=== PATIENT | female | born 1965 | race Hispanic/Latino ===

== ENCOUNTER 2024-12-04 02:42 | Inpatient (IN) | payer MEDICAID, SELFPAY ==
[2024-12-04] MEDS ORDERED: EPINEPHrine 1 MG/10 ML Abboject SYRINGE ONE (02:44)
[2024-12-04] MEDS ORDERED: Norepinephrine 8 MG/0.9% NS 250 ML ONE (02:55)
[2024-12-04] MEDS ORDERED: Sodium Bicarb 50 MEQ/50 ML Abboject 8.4% SYRINGE ONE (03:05)
[2024-12-04 03:18] LABS: Analyzer IN Cardio ER; Base Excess (BEa) -16.6 mEq/L (-2.0 to +3.0); CO2 Tension 44.4 mmHg (35.0-45.0); Calcium, Ionized (arterial) 1.16 mmol/L (1.12-1.30); Hematocrit-ABG 26 % (36.0-47.0); Hemoglobin (Hb) 9.0 g/dL (12.0-16.0); O2 Tension (PaO2), arterial 538.9 mmHg (> 80.0); Potassium - ABG Lab 4.45 mmol/L (3.70-5.30)
[2024-12-04 03:29] LABS: Hematocrit 27.5 % (36.0-47.0); Hemoglobin 8.1 g/dL (12.0-16.0); Mean Corpuscular Hemoglobin 29.6 pg (27.0-31.0); Mean Corpuscular Volume 100.4 fL (78.0-98.0); Platelet Count 170 10x3/uL (130-400); Red Blood Cell (RBC) Count 2.74 mill/uL (4.20-5.40); White Blood Cell (WBC) Count 7.02 10x3/uL (4.8-10.8)
[2024-12-04 03:32] LABS: Analyzer IN Cardio ER; Base Excess -18.2 mEq/L (-2.0 to +3.0); Calcium, Ionized (venous) 1.17 mmol/L (1.16-1.32); Chloride (VBG) 102 mmol/L (98-106); Hematocrit-VBG 27 % (36.0-47.0); Hemoglobin (Hb) 9.3 g/dL (11.7-16.0); Potassium (VBG) 4.10 mmol/L (3.70-5.30); Sodium 141 mmol/L (133-146)
[2024-12-04 03:53] LABS: Anisocytosis SLIGHT = 6-15 cells HPF (0-5); Macrocytosis SLIGHT = 6-15 cells HPF (0-5); Nucleated RBC (Manual Ct) 1 % (0); Platelet Adequacy Comment Platelets Normal
[2024-12-04 03:57] LABS: ALT (SGPT) 122 U/L (Less than 34); AST (SGOT) 208 U/L (11-34); Albumin 2.9 g/dL (3.1-4.5); Alkaline Phosphatase 157 U/L (40-110); Anion Gap 31 mmol/L (10-20); BUN (Urea Nitrogen) 51 mg/dL (9.8-20.1); Bilirubin, Total 0.3 mg/dL (0.3-1.2); Calc. Creatinine Clearance 0 mL/min (70-130); Calcium 8.8 mg/dL (7.8-10.44); Carbon Dioxide 14 mmol/L (23-31); Chloride 103 mmol/L (98-107); Globulin 2.7 g/dL (2.4-3.5); Glucose 368 mg/dL (80-115); Magnesium 2.7 mg/dL (1.6-2.6); Potassium 4.2 mmol/L (3.5-5.1); Sodium 144 mmol/L (136-145)
[2024-12-04 04:39] LABS: INR-International Normal Ratio 1.4; Prothrombin Time 16.8 sec (12.0-14.7)
[2024-12-04 04:40] LABS: Acetaminophen Less than 10 mcg/mL (Less than 10); Salicylate Less than 8.0 mg/dL (Less than 8.0)
[2024-12-04 04:40] LABS: PTT 49.0 sec (22.9-36.1)
[2024-12-04 04:41] LABS: Glucose, Urine (Dipstick) 500 mg/dL (Negative); Leukocyte Negative (Negative); Protein, Urine (Dipstick) > or equal to 300 mg/dL (Neg-Trace); Specific Gravity, Urine 1.020 (1.005-1.030)
[2024-12-04 04:45] LABS: CAUTI Indications for Culture Alt mental st,lethar; Other Microscopic Description Less than 2 mL rec'd; RBC/HPF 21-50 HPF (0-3)
[2024-12-04 04:46] LABS: Urine Culture Reflex No No
[2024-12-04] MEDS ORDERED: hydrALAZINE 20 MG/ML VIAL ONE (05:08)
[2024-12-04] MEDS ORDERED: Acetaminophen 325 MG TAB PO PRN (05:28)
[2024-12-04] MEDS ORDERED: Ondansetron PF 4 MG/2 ML Vial IVP PRN (05:28)
[2024-12-04] MEDS ORDERED: Glucagon 1 MG/ML KIT IM PRN (05:38)
[2024-12-04] MEDS ORDERED: Dextrose 50% Abboject 50 ML SYRINGE SLOW IVP PRN (05:38)
[2024-12-04] MEDS ORDERED: Ventilator Sedation Protocol 1 EACH FS SCH (05:45)
[2024-12-04] MEDS ORDERED: hydrALAZINE 20 MG/ML VIAL SLOW IVP PRN ×2 (05:50→08:01)
[2024-12-04] MEDS ORDERED: DISCONTINUE PREVIOUS NARCOTIC PAIN MEDICATIONS AND BENZODIAZEPINES FS SCH (06:00)
[2024-12-04] MEDS ORDERED: Propofol BOLUS 1,000 MG/100 ML VIAL IV PRN (06:00)
[2024-12-04] MEDS ORDERED: Fentanyl BOLUS 100 ML IVPB PRN (06:00)
[2024-12-04 07:08] LABS: Actual Bicarbonate (HCO3a) 21.0 mEq/L (22-28); Base Excess (BEa) -3.9 mEq/L (-2.0 to +3.0); CO2 Tension 37.5 mmHg (35.0-45.0); Calcium, Ionized (arterial) 0.98 mmol/L (1.12-1.30); Hematocrit-ABG 26 % (36.0-47.0); Hemoglobin (Hb) 8.7 g/dL (12.0-16.0); O2 Tension (PaO2), arterial 156.0 mmHg (> 80.0); Potassium - ABG Lab 4.65 mmol/L (3.70-5.30); pH, Arterial 7.367 (7.35-7.45)
[2024-12-04 07:09] LABS: Puncture Site Right Radial artery
[2024-12-04] MEDS: niCARdipine 25 MG in Sodium Chloride 0.9% 250 ML 250 ML IVPB SCH ×2 (08:14→15:57)
[2024-12-04] MEDS: hydrALAZINE 20 MG/ML VIAL SLOW IVP PRN (08:32)
[2024-12-04 08:37] VITALS: BMI 26.0
[2024-12-04] MEDS: Pantoprazole 40 MG VIAL IVP SCH (08:37)
[2024-12-04] MEDS ORDERED: Iopamidol-370 76% 500 ML MDV (1 ML CHARGE) ONE ×2 (08:47→08:49)
[2024-12-04] MEDS ORDERED: Aspirin 81 mg Enteric Coated Tablet PO SCH (09:00)
[2024-12-04] MEDS ORDERED: Heparin 5,000 UNITS/ML VIAL SC SCH (09:00)
[2024-12-04] MEDS: levETIRAcetam 500 MG (5 mL) VIAL SLOW IVP SCH ×2 (09:03→20:20)
[2024-12-04 09:06] LABS: Cocaine Metabolite Screen Negative (Negative); THC/Cannabinoid Screen Negative (Negative); Tricyclic Screen Negative (Negative)
[2024-12-04 09:43] VITALS: BMI 26.0
[2024-12-05 01:41] LABS: Campy jejuni + coli by PCR Negative (Negative); STEC Shiga Toxin 1+2 Negative (Negative); Salmonella spp. by PCR Negative (Negative); Shigella spp + EIEC by PCR Negative (Negative)
[2024-12-05 05:11] LABS: ALT (SGPT) 68 U/L (Less than 34); AST (SGOT) 124 U/L (11-34); Albumin 2.1 g/dL (3.1-4.5); Alkaline Phosphatase 83 U/L (40-110); Anion Gap 20 mmol/L (10-20); BUN (Urea Nitrogen) 60 mg/dL (9.8-20.1); Bilirubin, Total 0.4 mg/dL (0.3-1.2); Calc. Creatinine Clearance 7 mL/min (70-130); Calcium 7.2 mg/dL (7.8-10.44); Carbon Dioxide 20 mmol/L (23-31); Chloride 106 mmol/L (98-107); Globulin 2.2 g/dL (2.4-3.5); Glucose 132 mg/dL (80-115); Potassium 4.7 mmol/L (3.5-5.1); Sodium 141 mmol/L (136-145)
[2024-12-05 06:16] LABS: #Basophils Less than 0.03 10x3/uL (0.0-0.2); #Eosinophils Less than 0.03 10x3/uL (0.0-0.7); #Monocytes 0.16 10x3/uL (0.11-0.59); #Neutrophils 5.95 10x3/uL (1.40-6.50); %Basophils 0.2 % (0.0-1.0); %Eosinophils 0.3 % (0.0-10.0); %Lymphocytes 7.4 % (21.0-51.0); %Monocytes 2.4 % (0.0-10.0); %Neutrophils 89.2 % (42.0-75.0); Hematocrit 18.2 % (36.0-47.0); Hemoglobin 6.2 g/dL (12.0-16.0); Mean Corpuscular Hemoglobin 30.4 pg (27.0-31.0); Mean Corpuscular Volume 89.2 fL (78.0-98.0); Platelet Count 130 10x3/uL (130-400); Red Blood Cell (RBC) Count 2.04 mill/uL (4.20-5.40); White Blood Cell (WBC) Count 6.66 10x3/uL (4.8-10.8)
[2024-12-05 06:18] LABS: Critical Call w/ Read Back XXXX
[2024-12-05 08:04] LABS: Actual Bicarbonate (HCO3a) 12.6 mEq/L (22-28); pH, Arterial 7.071 (7.35-7.45)
[2024-12-05 08:05] LABS: Actual Bicarbonate (HCO3v) 12.9 mEq/L (22-28)
[2024-12-05] MEDS: Hydrocortisone Sod Succ/PF 100 mg/2 ml Vial IVP SCH (10:38)
[2024-12-05 12:49] LABS: Actual Bicarbonate (HCO3a) 19.6 mEq/L (22-28); Base Excess (BEa) -0.7 mEq/L (-2.0 to +3.0); Calcium, Ionized (arterial) 0.95 mmol/L (1.12-1.30); Hematocrit-ABG 26 % (36.0-47.0); Hemoglobin (Hb) 9.0 g/dL (12.0-16.0); O2 Tension (PaO2), arterial 404.6 mmHg (> 80.0); Potassium - ABG Lab 4.79 mmol/L (3.70-5.30)
[2024-12-05 12:52] LABS: pH, Arterial 7.612 (7.35-7.45)
[2024-12-05 12:53] LABS: CO2 Tension 19.9 mmHg (35.0-45.0)
[2024-12-05 12:54] LABS: Puncture Site Right Radial artery
[2024-12-05 12:56] LABS: ALV-art Gradient 283.525 mmHg (0-20)
[2024-12-05 13:43] LABS: Actual Bicarbonate (HCO3a) 20.2 mEq/L (22-28); Base Excess (BEa) -1.7 mEq/L (-2.0 to +3.0); Calcium, Ionized (arterial) 0.96 mmol/L (1.12-1.30); Hematocrit-ABG 27 % (36.0-47.0); Hemoglobin (Hb) 9.2 g/dL (12.0-16.0); O2 Tension (PaO2), arterial 345.6 mmHg (> 80.0); Potassium - ABG Lab 4.91 mmol/L (3.70-5.30); pH, Arterial 7.530 (7.35-7.45)
[2024-12-05 13:48] LABS: CO2 Tension 24.7 mmHg (35.0-45.0)
[2024-12-05 13:50] LABS: Puncture Site Right Radial artery
[2024-12-05 15:29] LABS: Actual Bicarbonate (HCO3a) 18.8 mEq/L (22-28); Base Excess (BEa) -5.4 mEq/L (-2.0 to +3.0); CO2 Tension 32.0 mmHg (35.0-45.0); Calcium, Ionized (arterial) 1.00 mmol/L (1.12-1.30); Hematocrit-ABG 28 % (36.0-47.0); Hemoglobin (Hb) 9.5 g/dL (12.0-16.0); O2 Tension (PaO2), arterial 260.4 mmHg (> 80.0); Potassium - ABG Lab 5.14 mmol/L (3.70-5.30); pH, Arterial 7.388 (7.35-7.45)
[2024-12-05 15:32] LABS: Puncture Site Right Radial artery
[2024-12-06 06:40] LABS: #Basophils Less than 0.03 10x3/uL (0.0-0.2); #Eosinophils Less than 0.03 10x3/uL (0.0-0.7); #Monocytes 0.29 10x3/uL (0.11-0.59); #Neutrophils 9.61 10x3/uL (1.40-6.50); %Basophils 0.1 % (0.0-1.0); %Eosinophils 0.0 % (0.0-10.0); %Lymphocytes 6.0 % (21.0-51.0); %Monocytes 2.7 % (0.0-10.0); %Neutrophils 90.6 % (42.0-75.0); Hematocrit 26.2 % (36.0-47.0); Hemoglobin 8.4 g/dL (12.0-16.0); Mean Corpuscular Hemoglobin 29.2 pg (27.0-31.0); Mean Corpuscular Volume 91.0 fL (78.0-98.0); Platelet Count 184 10x3/uL (130-400); Red Blood Cell (RBC) Count 2.88 mill/uL (4.20-5.40); White Blood Cell (WBC) Count 10.61 10x3/uL (4.8-10.8)
[2024-12-06 06:56] LABS: Anion Gap 21 mmol/L (10-20); BUN (Urea Nitrogen) 72 mg/dL (9.8-20.1); Calc. Creatinine Clearance 7 mL/min (70-130); Calcium 7.5 mg/dL (7.8-10.44); Carbon Dioxide 17 mmol/L (23-31); Chloride 111 mmol/L (98-107); Glucose 236 mg/dL (80-115); Potassium 5.1 mmol/L (3.5-5.1); Sodium 144 mmol/L (136-145)
[2024-12-07 06:12] VITALS: BP 138/60
[2024-12-07 09:42] VITALS: TEMP 95
== END 2024-12-07 14:10 | disposition expired | DRG 296 ==
LOC: ERS 02:42 → ERHOLD 05:00 → CCU 06:33
PROVIDERS: ADMIT Internal Medicine; ATTEND Internal Medicine
PROC: 4A133R1 Monitoring of Arterial Saturation, Peripheral, Percutaneous Approach (ICD-10-PCS; 2024-12-04)
PROC: 3E03329 Introduction of Other Anti-infective into Peripheral Vein, Percutaneous Approach (ICD-10-PCS; 2024-12-04)
PROC: 0T9B70Z Drainage of Bladder with Drainage Device, Via Natural or Artificial Opening (ICD-10-PCS; 2024-12-04)
PROC: 5A12012 Performance of Cardiac Output, Single, Manual (ICD-10-PCS; 2024-12-04)
PROC: 5A1945Z Respiratory Ventilation, 24-96 Consecutive Hours (ICD-10-PCS; 2024-12-04)
PROC: 05HY33Z Insertion of Infusion Device into Upper Vein, Percutaneous Approach (ICD-10-PCS; 2024-12-04)
PROC: 3E04329 Introduction of Other Anti-infective into Central Vein, Percutaneous Approach (ICD-10-PCS; 2024-12-04)
PROC: 5A1D70Z Performance of Urinary Filtration, Intermittent, Less than 6 Hours Per Day (ICD-10-PCS; 2024-12-04)
PROC: 06HY33Z Insertion of Infusion Device into Lower Vein, Percutaneous Approach (ICD-10-PCS; 2024-12-04)
PROC: 0DH67UZ Insertion of Feeding Device into Stomach, Via Natural or Artificial Opening (ICD-10-PCS; 2024-12-04)
PROC: 3E0G76Z Introduction of Nutritional Substance into Upper GI, Via Natural or Artificial Opening (ICD-10-PCS; 2024-12-04)
PROC: 3E033XZ Introduction of Vasopressor into Peripheral Vein, Percutaneous Approach (ICD-10-PCS; 2024-12-04)
PROC: XX20X89 Monitoring of Brain Electrical Activity, Computer-aided Detection and Notification, New Technology Group 9 (ICD-10-PCS; principal; 2024-12-05)
PROC: 30233N1 Transfusion of Nonautologous Red Blood Cells into Peripheral Vein, Percutaneous Approach (ICD-10-PCS; 2024-12-05)
DX: I46.9 Cardiac arrest, cause unspecified (principal); G93.41 Metabolic encephalopathy; J96.01 Acute respiratory failure with hypoxia; N18.6 End stage renal disease; I61.8 Other nontraumatic intracerebral hemorrhage; K72.00 Acute and subacute hepatic failure without coma; K66.1 Hemoperitoneum; G93.6 Cerebral edema; I12.0 Hypertensive chronic kidney disease with stage 5 chronic kidney disease or end stage renal disease; I16.1 Hypertensive emergency; E87.20 Acidosis, unspecified; G93.1 Anoxic brain damage, not elsewhere classified; R57.9 Shock, unspecified; M96.A3 Multiple fractures of ribs associated with chest compression and cardiopulmonary resuscitation; S36.113A Laceration of liver, unspecified degree, initial encounter; Z51.5 Encounter for palliative care; Z66 Do not resuscitate; E11.22 Type 2 diabetes mellitus with diabetic chronic kidney disease; I25.10 Atherosclerotic heart disease of native coronary artery without angina pectoris; R19.7 Diarrhea, unspecified; D63.1 Anemia in chronic kidney disease; R79.89 Other specified abnormal findings of blood chemistry; Z99.2 Dependence on renal dialysis; Z86.73 Personal history of transient ischemic attack (TIA), and cerebral infarction without residual deficits
CPT/HCPCS: 31500; 36415; 36416; 36430; 36556; 36600; 51702; 70450; 70553; 71045; 71250; 71275; 72125; 74174; 74177; 76376; 78610; 80048; 80053; 80306; 80307; 81001; 82805; 83036; 83605; 83735; 83880; 84484; 85025; 85610; 85730; 86850; 86900; 86901; 87040; 87324; 87449; 87505; 92950; 93005; 93306; 94003; 95705; 96365; 96366; 96367; 96368; 96375; A9521; J0165; J0360; J1720; J1815; J1953; J2060; J2470; J2543; J2704; J7030; J7050; J7070; P9016; Q9967